=== PATIENT | female | born 1990 | race Caucasian/White ===

== ENCOUNTER 2017-05-08 11:16 | Emergency (ER) | payer OTHER ==
--- NOTE | ~2017-05-08 | ER ---
PATIENT'S NAME: MORRIS CHAUHAN [facility] AGE: 26 Y [address] ROOM: [place] [address] LOCATION: [facility] ADMIT DATE: 05/08/2017 ER/Outpatient Report DISCHARGE DATE: 05/08/2017 FAMILY PHYSICIAN: Aida Dong MD ATTENDING PHYSICIAN: Nikhil Garber Time of Arrival: Time of Evaluation: Admission date and time documented in the medical record. I saw the patient at 1130 hours. CHIEF COMPLAINT: Left jaw pain post excision of all four wisdom teeth one week ago. HISTORY OF PRESENT ILLNESS: This patient is a 26-year-old female who had all four of her wisdom teeth extracted one week ago. She has had persistent pain especially on the left side of her jaw. Pain radiates into her left cheek, sinus. Denies any fever, chills, or sweats. No coughs, colds, or flus. No visual or auditory disturbance, lateralizing weakness, numbness, tingling, or loss of function. No headache. No ear pain. HOME MEDICATIONS: See attached medication list. ALLERGIES: PENICILLIN. SOCIAL HISTORY: Nonsmoker and nondrinker. SIGNIFICANT PAST MEDICAL HISTORY: Negative. PAST SURGICAL HISTORY: Operations: 1. Tonsillectomy. 2. Tympanostomy tubes. 3. Dental surgery. REVIEW OF SYSTEMS: All systems reviewed by me are negative with the exception of those discussed in the History of Present Illness. PHYSICAL EXAMINATION: VITAL SIGNS: Temperature 98.8, tympanic; pulse 69; respiratory rate 16; blood PATIENT'S NAME: MORRIS CHAUHAN [facility] AGE: 26 Y [address] ROOM: [place] [address] LOCATION: [facility] ADMIT DATE: 05/08/2017 ER/Outpatient Report DISCHARGE DATE: 05/08/2017 FAMILY PHYSICIAN: Aida Dong MD ATTENDING PHYSICIAN: Nikhil Garber pressure 145/90; and O2 saturation on room air is 100%. HEENT: Head; normocephalic. Face is intact. I do not see any marked swelling of the right or left jaw. Throat is clear. Tooth extraction sites of all four wisdom teeth are intact. No swelling. No redness. No drainage. NECK: No nuchal rigidity. No thyromegaly or cervical adenopathy. NEUROLOGIC: Neurovascularly intact. IMPRESSION: Left jaw pain status post wisdom teeth extraction one week ago, etiology uncertain. PLAN: I did speak with Dr. Mayer, oral surgeon. He will see the patient at 1300 hours today for consultative exam. Discussion ensued with the patient concerning my findings and recommendations, she understands. NIHKIL GARBER MD SDS/modl /[id number] d: 05/08/17 1838 t: 05/09/1713, OUTPATIENT REPORT
== END 2017-05-08 11:51 | disposition disaster alternative care site (69) ==
LOC: GMED 11:16
DX: R68.84 Jaw pain (principal); Z88.0 Allergy status to penicillin; Z90.89 Acquired absence of other organs; Z98.890 Other specified postprocedural states; Z79.899 Other long term (current) drug therapy